=== PATIENT | female | born 1940 | race Caucasian/White ===

== ENCOUNTER → 2023-12-11 09:49 | Outpatient (CLI) | payer MEDICARE, SELFPAY ==
--- NOTE | 2023-12-11 | DI.RAD.S_ITS ---
PROCEDURE: XR CHEST 1V INDICATIONS: POST THORACENTESIS TECHNIQUE: One view of the chest was acquired. COMPARISON: [facility], CR, XR CHEST 1 VIEW, 10/31/2023, 9:53. [facility], CR, XR CHEST 1V, 12/11/2023, 11:05. FINDINGS: Surgical changes and devices: Right chest port is present. Lungs and pleura: Interval decrease in size of right pleural effusion. No pneumothorax. Consolidations at the right lung with now smaller pleural effusion persist. Mediastinum: Mediastinal contours are obscured by right lung opacities. Bones and chest wall: Visualized bones appear grossly intact. IMPRESSION: No pneumothorax status post right thoracentesis Dictated by: Armando Sutton M.D. on 12/11/2023 at 14:16 Approved by: Armando Sutton M.D. on 12/11/2023 at 14:24
--- NOTE | 2023-12-11 09:51 | DI.US.S_ITS ---
PROCEDURE: US THORACENTESIS INDICATIONS: Right pleural effusion, needs thora TECHNIQUE: The indications, alternatives, benefits, risks, and complications of the procedure were explained to the patient. Written informed consent was obtained and placed in the chart. The chest was examined sonographically, and an appropriate site was chosen for thoracentesis. The skin was prepared and draped in the usual sterile fashion, and 1% lidocaine was infiltrated from the skin down through the pleural surface. A 19-gauge catheter-covered needle was then introduced into the pleural space, the catheter was advanced and the needle was withdrawn, and thereafter pleural fluid was aspirated. The catheter was then removed and a dressing was applied. COMPARISON: None. FINDINGS: Access site: Right hemithorax. Needle: One-Step centesis catheter with introducer needle. Fluid volume and description: 1600 cc of clear yellow fluid Fluid sent for diagnostic testing: As requested by ordering team Medications: 1% lidocaine for local anaesthesia. Complications: None; post-procedural chest radiograph is pending to assess for pneumothorax. IMPRESSION: Successful ultrasound-guided thoracentesis. Dictated by: Armando Sutton M.D. on 12/12/2023 at 14:46 Approved by: Armando Sutton M.D. on 12/12/2023 at 14:46
--- NOTE | 2023-12-11 11:05 | DI.RAD.S_ITS ---
PROCEDURE: XR CHEST 1V INDICATIONS: POST THORACENTESIS TECHNIQUE: One view of the chest was acquired. COMPARISON: None. FINDINGS: Surgical changes and devices: Right chest wall port tip projects over the low SVC. Lungs and pleura: Moderate right pleural effusion and right basilar atelectasis. No pneumothorax. Mediastinum: Mediastinal contours appear normal. Heart size is normal. Bones and chest wall: No suspicious bony lesions. Overlying soft tissues appear unremarkable. IMPRESSION: No pneumothorax. Moderate right loculated pleural effusion. Dictated by: Charles Olmedo M.D. on 12/11/2023 at 15:13 Approved by: Charles Olmedo M.D. on 12/11/2023 at 15:14
[2023-12-11 11:18] LABS: INR 1.1 (0.9-1.3); Prothrombin Time 12.1 SECONDS (9.4-12.5)
== END ==
PROVIDERS: PCP Family Medicine; Referring Provider Student in an Organized Health Care Education/Training Program; Visit Provider Student in an Organized Health Care Education/Training Program
DX: J91.0 Malignant pleural effusion (principal); C34.91 Malignant neoplasm of unspecified part of right bronchus or lung
CPT/HCPCS: 32555; 36415; 71045; 85610